=== PATIENT | male | born 1940 | race Caucasian/White ===

== ENCOUNTER 2024-10-19 06:54 | Day surgery (SDC) | payer MEDICARE ==
[~2024-10-19] VITALS: Ht 180.3 cm; Wt 73.6 kg
[2024-10-19] VITALS (7 sets, daily range): BP systolic 120–141; BP diastolic 67–70; PULSE 60–61; RESP 13–18; O2SAT 96–99
[2024-10-19] MEDS ORDERED: clindamycin-Cleocin 900mg/D5W 50 ML IV ONE (07:25)
[2024-10-19] MEDS ORDERED: NITR0.4T48 (07:33)
[2024-10-19] MEDS ORDERED: TAMS-55 PO (07:33)
[2024-10-19] MEDS ORDERED: APIX2.5T PO (07:33)
--- NOTE | 2024-10-19 07:33 | ELECTROCARDIOGRAPH REPORT ---
[facility] Test Date: 2024-10-19 Test Time: 07:31:58 Pat Name: JOVANNY BOYER Department: [facility] O Patient ID: [facility]-[id number] Room: Gender: M Business Continuity Specialist: TRACY : 1940 Requested By: ROMY MENCHACA Order Number: [id number] Reading MD: Dr. ELIEL Connolly Measurements Intervals [place] Rate: 37 P: 73 SC: 213 QRS: 7 QRSD: 112 T: 19 QT: 491 QTc: 386 Interpretive Statements Sinus bradycardia Atrial premature complex Probable left atrial enlargement Borderline intraventricular conduction delay Borderline T wave abnormalities Electronically Signed On 10-20-2024 12:37:[address] ELIEL Connolly Please click the below link to view image of tracing.
[2024-10-19] MEDS ORDERED: VANCOMYCIN 1,500MG in NS 300 ML IVPB IV ONE (07:35)
[2024-10-19] MEDS ORDERED: ROSU20TA98 PO (07:38)
[2024-10-19] MEDS ORDERED: TEST200V33 IM (07:42)
[2024-10-19] MEDS ORDERED: CARV-50 PO (07:42)
[2024-10-19] MEDS ORDERED: EMPA10TA PO (07:43)
[2024-10-19] MEDS ORDERED: HYDRALAZINE PO (07:45)
[2024-10-19 08:13] LABS: MEAN PLATELET VOLUME 8.1 FL (7.4-10.4); RED CELL DISTRIBUTION WIDTH 15.1 % (11.5-14.5)
[2024-10-19 08:15] LABS: INR 1.0 INR
[2024-10-19 08:19] LABS: CREATININE 2.87 MG/DL (0.60-1.10); TOTAL CARBON DIOXIDE 28.7 MMOL/L (24-32); eCRCL 20 ML/MIN; eGFR 21 ML/MIN
[2024-10-19] MEDS: VANCOMYCIN/H2O 1.5g/300mL PB 300 ML IV ONE (08:25)
[2024-10-19] MEDS: normal saline 1000ml 1,000 ML IV PRN (08:34)
[2024-10-19] MEDS ORDERED: LIDOcaine 1% W/epiNEPHrine 1:100,000 20ml vial ONE (08:44)
[2024-10-19] MEDS ORDERED: midazolam 1 mg/ML 2ml injection ONE ×2 (08:44→10:04)
[2024-10-19] MEDS ORDERED: fentaNYL/PF 50MCG/1 ML 2ML syringe ONE (08:44)
[2024-10-19] MEDS ORDERED: iohexol 350 MG/ML 50ML vial IV ONE (08:44)
[2024-10-19] MEDS ORDERED: vancomycin 1,000mg inj ONE (09:12)
[2024-10-19] MEDS ORDERED: hydrALAZINE 20mg/ml inj. ONE (09:58)
[2024-10-19] MEDS ORDERED: HYDROcodone/acetaminophen 10/325mg tab PO PRN (10:45)
[2024-10-19] MEDS ORDERED: HYDROcodone/acetaminophen 5mg/325mg tablet PO PRN (10:45)
--- NOTE | 2024-10-19 11:09 | CARDIOLOGY REPORT ---
DATE OF SERVICE: 10/19/2024 DICTATING PHYSICIAN: ROMY MENCHACA DO CARDIAC CATHETERIZATION REPORT REFERRING PHYSICIAN: Jose Manuel Siddiqi MD. PROCEDURES PERFORMED: * Implantation of permanent dual chamber ICD with endocardial electrodes. * A 60-minute conscious sedation supervision and defibrillation testing. PREOPERATIVE DIAGNOSES: * Severe sick sinus syndrome. * Persistent cardiomyopathy (presumed to be ischemic). POSTOPERATIVE DIAGNOSES: * Severe sick sinus syndrome. * Persistent cardiomyopathy (presumed to be ischemic). CLINICAL HISTORY: This 84-year-old man with a history of coronary artery disease and at least one non-STEMI myocardial infarction has a persisting cardiomyopathy. He has also had very severe sinus bradycardia, which has persisted in spite of reducing his carvedilol from 25 mg to 12.5 mg twice a day. ANESTHESIA: Conscious sedation with local to skin. DEVICES IMPLANTED: Medtronic RV ICD electrode, model #6935 and serial #[id number]; Medtronic atrial electrode, model #4076 and serial #[id number]; Medtronic pulse generator, model #GULD3P7 and serial #[id number]. DESCRIPTION OF PROCEDURE: The patient was sedated with fentanyl and Versed. He was then prepared and draped in the usual manner. The left pectoral area was liberally infiltrated with 1% lidocaine containing a 1:100,000 mixture of epinephrine. Using a micropuncture set, a small guidewire was placed in the subclavian vein. Next, a 5 cm incision was made beneath the guidewire and a subcutaneous pocket was created with electrocautery. The guidewire was pulled into the pocket and using a micropuncture size-up sheath, a 0.035 guidewire and a 9.5-Hungarian dilator and sheath assembly was placed in the subclavian vein. After removal of the dilator and guidewire, the RV ICD electrode was passed into the right atrium and prolapsed across the tricuspid valve and ultimately placed in the RV apex. The screw was extended. The stylet was withdrawn and sensing and pacing evaluation was evaluated. The R-wave amplitude was 8.1 millivolts. The impedance 646 ohms and the threshold for capture was 0.5 volts. A 7-Hungarian sheath was also placed in the subclavian vein. Using this sheath, the right atrial electrode was passed into the right atrium and using a J-shaped stylet, it was placed in the region of the right atrial appendage. The screw was extended. The stylet was withdrawn and sensing and pacing evaluation demonstrated a P-wave amplitude of 2.6 millivolts and impedance of 570 ohms and a threshold for capture of 0.5 volts. Sheaths were removed while ensuring stability of the electrodes on fluoroscopic observation. A 3-0 Vicryl suture was placed around the electrodes at their exit point from the pectoral fascia. The electrodes were further secured to the pectoral fascia using 2-0 Ethibond sutures around the suturing sleeves. Next, the generator was attached to the electrodes and together they were placed in the pocket. The pocket was irrigated with a vancomycin antibiotic solution. The subcutaneous layer was closed with 3-0 Vicryl and the skin was approximated with 4-0 Monocryl. The patient was placed in ventricular fibrillation with a 2 joule T-shock. He was easily converted to an organized rhythm with 115 joule shock. There were no complications. For initial programming of the device, please see the attached Medtronic data sheet. ROMY MENCHACA DO TID: [id number] RECEIPT: [id number] [facility]
--- NOTE | 2024-10-19 12:07 | RADIOLOGY REPORT ---
EXAM: DI CHEST,SINGLE VIEW Indication: post ppm implantation Technique: Single frontal view of the chest was obtained Comparison: None FINDINGS: Lines and Tubes: Cardiac pacemaker projects over left chest wall. Lungs: No focal consolidation. Pleura: No effusion. No pneumothorax. Cardiomediastinal contours: Cardiomegaly. Atherosclerotic vascular calcifications of the thoracic aor ta are noted. Bones: No acute osseous abnormality. IMPRESSION: No acute cardiopulmonary disease.
[2024-10-19] MEDS ORDERED: sod chloride 0.9% 10ml flush syringe IV SCH (16:00)
[2024-10-20] MEDS ORDERED: normal saline 500ml IV soln 500 ML IV SCH (05:30)
[2024-10-22] MEDS ORDERED: ALLO100T PO (10:07)
[2024-10-22] MEDS ORDERED: CLIN-232 PO (16:33)
== END 2024-10-19 12:45 | disposition home or self-care (01) ==
LOC: SSTAY O 06:54
PROVIDERS: ATTEND Internal Medicine Cardiovascular Disease
DX: I42.9 Cardiomyopathy, unspecified (principal); I49.5 Sick sinus syndrome; I25.10 Atherosclerotic heart disease of native coronary artery without angina pectoris; I25.2 Old myocardial infarction; I49.1 Atrial premature depolarization; Z79.899 Other long term (current) drug therapy
CPT/HCPCS: A4565; C1721; C1895; C1898; J0360; J0690; J2250; J3010; J3370; J3372; J3490; J7030; Q9967; Z7610; 33249; 36415; 71045; 80048; 83735; 85025; 85610; 93005; 99152; 99153; J3373; J3375